=== PATIENT | male | born 1985 | race Caucasian/White ===

== ENCOUNTER 2020-09-19 22:29 | Emergency (ER) | payer SELFPAY ==
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
[2020-09-20] MEDS ORDERED: HYDROCODONE/APAP 5/325 MG TAB ONE (02:24)
[2020-09-20] MEDS ORDERED: MORPHINE 4 MG/ML SYR ONE (02:46)
[2020-09-20 03:07] VITALS: BP 147/76; TEMP 98; O2SAT 100
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
== END 2020-09-20 02:50 | disposition short-term general hospital (02) ==
LOC: ER 22:29
DX: S02.40DA Maxillary fracture, left side, initial encounter for closed fracture (principal); S02.32XA Fracture of orbital floor, left side, initial encounter for closed fracture; S02.632A Fracture of coronoid process of left mandible, initial encounter for closed fracture; Y04.2XXA Assault by strike against or bumped into by another person, initial encounter; Y93.9 Activity, unspecified; Y92.9 Unspecified place or not applicable; Z91.048 Other nonmedicinal substance allergy status
CPT/HCPCS: 70450; 70486; 72125; 76377; 96374; 99285; G0390